=== PATIENT | female | born 1990 | race Caucasian/White ===

== ENCOUNTER 2016-06-26 21:50 | Emergency (ER) | payer OTHER ==
[2016-06-26] MEDS ORDERED: SODIUM CHLORIDE 1,000 ML IV STA (21:57)
[2016-06-26] MEDS ORDERED: ONDANSETRON 4 MG/2 ML VIAL IVPUSH ONE (21:57)
--- NOTE | 2016-06-26 21:58 | PDOC ---
History of Present Illness - General Chief Complaint: Nausea/Vomiting Stated Complaint: VOMITING SINCE 4PM Time Seen by Provider: 06/26/16 21:52 - History of Present Illness Initial Comments: This otherwise healthy 26-year-old woman presents with a history of vomiting for the last several hours. Patient relates that she drank a large amount of alcohol last night while socializing; she states that she normally does not drink much alcohol. She slept until 4 PM today. When she awakened, she had mild headache but significant nausea and was unable to tolerate any liquid or solid food, vomiting promptly. No blood or coffee grounds seen in the vomitus. She had no significant abdominal pain during this time. No fever/chills/ diarrhea. No other symptoms. No previous history of gastritis or peptic ulcer disease. Past History - Past Medical History Allergies/Adverse Reactions: Allergies Allergy/AdvReac Type Severity Reaction Status Date / Time No Known Allergies Allergy Verified 06/26/16 21:51 Home Medications: Ambulatory Orders Desogestrel-Ethinyl Estradiol [Sharoner 28 Day Tablet] 1 each PO DAILY 06/26/16 Ondansetron [Zofran Odt -] 4 mg SL TID PRN #10 od.tablet 06/26/16 Review of Systems - Review of Systems Able to Perform ROS?: Yes Comments:: 12 point review of systems is negative except for what is noted in the history of present illness *Physical Exam - Physical Exam Comments: GENERAL: adult female, alert and oriented 3, in mild distress secondary to nausea HEAD: Normal with no signs of trauma. EYES: PERRLA, EOMI, sclera anicteric, conjunctiva clear. ENT: Ears normal, nares patent, oropharynx clear without exudates. Dry mucous membranes. NECK: Normal range of motion, supple without lymphadenopathy, JVD, or masses. LUNGS: Breath sounds equal, clear to auscultation bilaterally. No wheezes, and no crackles. HEART:Regular rate and rhythm, normal S1 and S2 without murmur, rub or gallop. ABDOMEN:.normal bowel sounds No guarding,tenderness or rebound.No masses No distention. EXTREMITIES: Normal range of motion, no edema. No clubbing or cyanosis. No erythema, or tenderness. NEUROLOGICAL: Cranial nerves II through XII grossly intact. Normal speech. No focal neurological deficits. MUSCULOSKELETAL: Back non-tender to palpation, no CVA tenderness SKIN: Warm, Dry, normal turgor, no rashes or lesions noted. Progress Note - Progress Note Progress Note: This 26-year-old woman, otherwise healthy, received 2 L of normal saline and 4 mg of Zofran IV for persistent nausea after consuming large amount of alcohol approximately 12 hours prior to start of symptoms. Exam reveals dry mucous membranes but no significant abdominal tenderness. Patient felt significantly better after IV hydration and Zofran. She is able to tolerate water by mouth without nausea or vomiting. Patient will be discharged with instructions to continue clear liquids and advance diet cautiously as tolerated. Prescription for Zofran 4 mg ODT to be used up to 3 times a day as needed for persistent nausea will be transmitted to the patient's pharmacy. *DC/Admit/Observation/Transfer Diagnosis at time of Disposition: Gastritis Qualifiers: Gastritis type: alcoholic Chronicity: acute Gastritis bleeding: without bleeding Qualified Code(s): K29.20 - Alcoholic gastritis without bleeding - Discharge Dispostion Disposition: HOME Condition at time of disposition: Stable - Prescriptions Prescriptions: Ondansetron [Zofran Odt -] 4 mg SL TID PRN #10 od.tablet PRN Reason: Nausea - Patient Instructions Printed Discharge Instructions: DI for Vomiting -- Adult Additional Instructions: continue liquids as tolerated advance diet cautiously Zofran ODT4mg up to 3 times a day for nausea/vomiting return to ER if you have recurrent vomiting
[2016-06-26 22:07] VITALS: BP 113/80; PULSE 102; TEMP 97.7; BMI 25.2
== END 2016-06-26 23:21 | disposition home or self-care (01) ==
LOC: FER 21:50
PROC: 3E033GC Introduction of Other Therapeutic Substance into Peripheral Vein, Percutaneous Approach (ICD-10-PCS; principal; 2016-06-26)
PROC: 3E0337Z Introduction of Electrolytic and Water Balance Substance into Peripheral Vein, Percutaneous Approach (ICD-10-PCS; 2016-06-26)
DX: K29.20 Alcoholic gastritis without bleeding (principal)
CPT/HCPCS: 99281-25

== ENCOUNTER 2019-08-13 17:39 | Emergency (ER) | payer SELFPAY ==
[2019-08-13 17:48] VITALS: BP 123/78; PULSE 83; TEMP 98.4; BMI 25.6
--- NOTE | 2019-08-13 18:50 | PDOC ---
History of Present Illness - General Chief Complaint: Bite Stated Complaint: DOG BITE TO RIGHT HAND Time Seen by Provider: 08/13/19 18:36 History Source: Patient Exam Limitations: No Limitations - History of Present Illness Initial Comments: 29 year old female without significant medical history presents to the ED with a dogbite on the right 4th digit DIP that occured 1 hour prior to arrival. She found a dog in the middle of the street and picked it up to move it to safety and it bit her hand and ran off. She did not have any significant pain, swelling or bleeding but came to the ED primarily for concern of tetanus or rabies. She had washed the wound vigorously following the incident with soap and water and hydrogen peroxide. Past History - Medical History Allergies/Adverse Reactions: Allergies Allergy/AdvReac Type Severity Reaction Status Date / Time No Known Allergies Allergy Verified 08/13/19 17:40 Home Medications: Ambulatory Orders Isobloom Control Pills 08/13/19 COPD: No Other medical history: pt denies - Psycho-Social/Smoking History Smoking History: Never smoked Have you smoked in the past 12 months: No Information on smoking cessation initiated: No - Substance Abuse Hx (Audit-C & DAST Scrn) How often the patient has a drink containing alcohol: Never Score: In Men: 4 or > Positive; In Women: 3 or > Positive: 0 Screen Result (Pos requires Nsg. Audit-10AR): Negative In the last yr the pt used illegal drug/Rx for NonMed reason: No Score: Yes response is considered Positive: 0 Screen Result (Positive result requires Nsg. DAST-10): Negative Review of Systems - Review of Systems Able to Perform ROS?: Yes Is the patient limited Yakut proficient: No Constitutional: No: Chills, Fever All Other Systems: Reviewed and Negative *Physical Exam - Vital Signs Last Vital Signs Temp Pulse Resp BP Pulse Ox 98.4 F 83 18 123/78 99 08/13/19 17:40 08/13/19 17:40 08/13/19 17:40 08/13/19 17:40 08/13/19 17:40 - Physical Exam General Appearance: Yes: Nourished, Appropriately Dressed. No: Apparent Distress HEENT: positive: EOMI Neck: positive: Trachea midline Extremity: positive: Other (Small puncture wound at right 4th posterior aspect of DIP joint, <1mm diameter, no surrounding swelling, erythema, or bleeding. ). negative: Tender Medical Decision Making - Medical Decision Making 29 year old female without significant medical history presents to the ED after she had been bitten by a dog on the right 4th digit of her hand. Physical exam was unremarkable except for an extremely small puncture wound without significant depth, bleeding, swelling, or ecchymosis. She was given tetanus shot and advised to contact police to find the animal to have it observed for rabies, and she's advised to return in 2 days to begin immunoglobin therapy and rabies vaccine treatment if the animal is unable to be found. She is safe to be discharged home. Discharge - Discharge Information Problems reviewed: Yes Clinical Impression/Diagnosis: Dog bite Condition: Stable Disposition: HOME - Admission No - Follow up/Referral Referrals: Corey Kahn MD [Primary Care Provider] - - Patient Discharge Instructions Patient Printed Discharge Instructions: How to Care for a Domestic Animal Bite, DI for Animal Bites Additional Instructions: You came to the ED following a bite from a dog that ran off after the incident. The wound was adequetly irrigated and washed. You received a tetanus shot. You are advised to contact the police for them to attempt to find the dog or owners to be observed for rabies. If not able to be found within 2 day, return to begin Ig therapy and rabies vaccine. - Post Discharge Activity
[2019-08-13] MEDS ORDERED: DIPHTH,PERTUSS(ACELL),TET 0.5 ML DISP.SYRIN IM ONE ×2 (18:52→18:55)
--- NOTE | 2019-08-13 19:04 | PDOC ---
Attending Attestation - Resident Resident Name: Tim David - HPI HPI: 08/17/19 12:21 Pt presents to the ED complaining of a very small dog bite to the R 4th digit by unknown dog. Patient states that she believed the dog to be friendly and picked it up, when it bit her on the hand. Denies other injuries. Rabies status of the dog is unknown, but the dog lives on the patient's street and the patient believes that the dog can be located. 08/17/19 12:22 - Physicial Exam PE: 08/17/19 12:29 Agree with resident exam. + minute puncture wound to the R fourth digit with minimal active bleeding. - Medical Decision Making 08/17/19 12:30 Pt presents to the ED with puncture wound from dog bite. No other injuries. wound copiously irrigated. Tetanus given. Will hold off on antibiotics at this time, given the minor nature of the wound. Will also hold off on rabies prophylaxis, given that the wound is low risk and the patient believes that the dog can be located. Patient instructed to return to the ED for worsening symptoms, signs of infection, or if the dog cannot be located. Discharge - Discharge Information Problems reviewed: Yes Clinical Impression/Diagnosis: Dog bite Condition: Stable Disposition: HOME - Follow up/Referral Referrals: Corey Kahn MD [Primary Care Provider] - - Patient Discharge Instructions Patient Printed Discharge Instructions: How to Care for a Domestic Animal Bite, DI for Animal Bites Additional Instructions: You came to the ED following a bite from a dog that ran off after the incident. The wound was adequetly irrigated and washed. You received a tetanus shot. You are advised to contact the police for them to attempt to find the dog or owners to be observed for rabies. If not able to be found within 2 day, return to begin Ig therapy and rabies vaccine. - Post Discharge Activity
== END 2019-08-13 19:20 | disposition home or self-care (01) ==
LOC: FER 17:39
PROC: 3E0234Z Introduction of Serum, Toxoid and Vaccine into Muscle, Percutaneous Approach (ICD-10-PCS; principal; 2019-08-13)
DX: S61.254A Open bite of right ring finger without damage to nail, initial encounter (principal); W54.0XXA Bitten by dog, initial encounter
CPT/HCPCS: 90471; 90715; 99282-25

== ENCOUNTER 2020-12-20 12:50 | Emergency (ER) | payer BC, OTHER ==
[2020-12-20 13:15] VITALS: BP 117/76; PULSE 97; TEMP 98.9; BMI 25.0
== END 2020-12-20 14:25 | disposition home or self-care (01) ==
LOC: FER 12:50
PROC: 0HQGXZZ Repair Left Hand Skin, External Approach (ICD-10-PCS; principal; 2020-12-20)
DX: S61.217A Laceration without foreign body of left little finger without damage to nail, initial encounter (principal); W23.0XXA Caught, crushed, jammed, or pinched between moving objects, initial encounter; Y92.9 Unspecified place or not applicable
CPT/HCPCS: 73140-TC-LT-FY; 99284-25

== ENCOUNTER 2023-12-05 10:24 | Emergency (ER) | payer BC, OTHER ==
[2023-12-05 10:30] VITALS: BP 128/85; PULSE 72; RESP 18; TEMP 98.4; BMI 26.5
[2023-12-05 11:39] LABS: HEMOGLOBIN 12.4 G/dL (10.7-15.3); MCH 27.7 pg (25.7-33.7); MCHC 30.9 g/dl (32.0-36.0); MEAN CELL VOLUME 89.7 fl (80-96); RBC 4.46 10^6/uL (3.60-5.2); RDW 14.8 % (11.6-15.6); WHITE BLOOD COUNT 7.2 10^3/uL (4.0-10.8)
[2023-12-05 12:06] LABS: ALBUMIN 4.4 g/dl (3.4-5.0); ALK PHOS 48 U/L (45-117); ANION GAP 6 mmol/L (4-13); BILIRUBIN,TOTAL 0.5 mg/dl (0.2-1); CALCIUM 9.2 mg/dl (8.5-10.1); CHLORIDE 105 mmol/L (98-107); CHOLESTEROL 173 mg/dL (50-200); CO2 27 mmol/L (21-32); CREATININE 0.6 mg/dl (0.6-1.3); GLUCOSE,RANDOM 88 mg/dl (74-106); PHOSPHOROUS 3.5 (2.5-4.9); POTASSIUM 3.9 mmol/L (3.5-5.1); SGOT/AST 17 U/L (15-37); SGPT/ALT 11 U/L (7-52); SODIUM 138 mmol/L (136-145); TOT PROT 6.9 g/dl (6.4-8.2)
[2023-12-05 12:44] LABS: PLATELET ESTIMATE ADEQUATE
[2023-12-05 13:44] LABS: GAMMA GLUTAMYL TRANSPEPTIDASE 11 U/L (5-85)
[2023-12-05 15:13] LABS: HIV INTERPRETATION NEGATIVE (NEGATIVE)
== END 2023-12-05 12:07 | disposition home or self-care (01) ==
LOC: FER 10:24
DX: Z77.21 Contact with and (suspected) exposure to potentially hazardous body fluids (principal)
CPT/HCPCS: 36415; 80053; 82465; 82977; 84100; 85025; 86704; 86803; 87340; 87389; 87517; 99283-25